=== PATIENT | female | born 1955 | race Caucasian/White ===

== ENCOUNTER 2018-08-07 15:11 | Observation (INO) | payer OTHER ==
[~2018-08-07] VITALS: Ht 170.2 cm; Wt 82.6 kg
[~2018-08-07 15:11] MED LIST: ACETAMINOPHEN325 MG PO; AZITHROMYCIN 2250 MG PO; HYDROCODONE-AP1 EAC6 PO; LEXAPRO 10 MG T10 M1 PO; PHENERGAN 25 MG25 MG PO; PREDNISONE50 MG PO; PROBIOTIC1 EAC1 PO; TORADOL 10 MG T10 MG PO; TYLENOL325 MG PO; VANCOMYCIN125 MG/2.1 PO
[2018-08-07 15:16] VITALS: BP 142/84
[2018-08-07 15:43] LABS: ABSOLUTE BASOPHILS 0.1 thou/uL (0.0-0.2); ABSOLUTE EOSINOPHILS 0.4 thou/uL (0.0-0.7); ABSOLUTE LYMPHOCYTES 4.4 thou/uL (0.8-5.3); ABSOLUTE MONOCYTES 0.7 thou/uL (0.0-1.2); ABSOLUTE NEUTROPHILS 5.7 thou/uL (1.6-8.1); BASOPHILS 1.3 %; EOSINOPHILS 3.5 %; HEMOGLOBIN 12.9 gm/dL (12.0-15.0); LYMPHOCYTES 38.5 %; MCH 32.2 pg (26.0-34.0); MCHC 33.1 g/dL (28.0-37.0); MCV 97.2 fL (80.0-100.0); NUCLEATED RBCS 0 /100WBC; PLATELET COUNT* 234 thou/uL (150-400); POLYS 50.7 %; RBC 4.02 mil/uL (4.20-5.00); RDW-CV 12.7 % (10.5-14.5); WBC 11.3 thou/uL (4.0-11.0)
[2018-08-07 15:49] LABS: ANION GAP 5 mmol/L (7-16); BUN 21 mg/dL (7-18); CALCIUM 8.3 mg/dL (8.5-10.1); CHLORIDE 105 mmol/L (98-107); CO2 29 mmol/L (21-32); GLUCOSE 121 mg/dL (70-99); SODIUM 139 mmol/L (136-145)
[2018-08-07 16:00] LABS: ALBUMIN 3.6 g/dL (3.4-5.0); ALKALINE PHOSPHATASE 47 U/L (46-116); LIPASE 160 U/L (73-393); NT-PRO BRAIN NAT PEPTIDE 61 pg/mL (<300); SGOT 22 U/L (15-37); SGPT 21 U/L (30-65); TOTAL BILIRUBIN 0.3 mg/dL (<0.1-1.0); TOTAL PROTEIN 6.8 g/dL (6.4-8.2); TROPONIN-I LEVEL <0.06 ng/mL (<0.06)
--- NOTE | 2018-08-07 17:31 | EKG ---
[place] [address] ELECTROCARDIOGRAM REPORT Name: PETE MARQUES Room: [place] [address] ADM IN [facility].#: [id number] Admission: 08/07/18 Attend Phys: Nicholas Callaway Discharge: Date of : 57 Report #: [id number] THIS REPORT FOR: //name// [facility] ED Test Date: 2018-08-07 Test Time: 15:18:21 Pat Name: PETE JERALD Department: Room: [facility] Gender: F Network Technical Analyst: TAURUS : 1955 Requested By: Horacio Hanson Order Number: [id number] MD: Sohan Carter Measurements Intervals [place] Rate: 74 P: 38 [place]: 164 QRS: 42 QRSD: 98 T: 58 QT: 387 QTc: 430 Interpretive Statements Sinus rhythm Nonspecific T abnormalities, anterior leads Compared to ECG 08/05/2017 16:58:23 T-wave abnormality now present Intraventricular conduction delay no longer present Electronically Signed On 08-07-2018 17:31:00 CDT by Sohan Carter [email or web address] <ELECTRONICALLY SIGNED> By: Sohan Carter MD, [facility] 08/07/18 1731 1518 1518 Sohan Carter MD, [facility] /EPI
[2018-08-07 18:45] VITALS: BP 163/75
[2018-08-07 18:53] LABS: AMP/METHAMP Negative (Negative); BARBITURATES Negative (Negative); BENZODIAZEPINES Negative (Negative); COCAINE Negative (Negative); METHADONE Negative (Negative); OPIATES Negative (Negative); PCP Negative (Negative); THC POSITIVE (Negative)
[2018-08-07 19:01] VITALS: BP 167/74
[2018-08-07 19:45] VITALS: BP 170/86
[2018-08-07 23:40] VITALS: BP 146/82
[2018-08-08 04:00] VITALS: BP 153/69
[2018-08-08 07:55] VITALS: BP 143/76
[2018-08-08 11:41] VITALS: BP 128/85
[2018-08-08] MEDS ORDERED: PROTONIX 20 MG20 M1 PO (13:59)
[2018-08-08 15:08] VITALS: BP 128/85
[2018-08-08] MEDS ORDERED: ASPIR 8181 MG PO (15:08)
--- NOTE | 2018-08-08 15:22 | EXE ---
[place] [address] STRESS ECHOCARDIOGRAM Name: PETE MARQUES Room: [address] IN [facility]#: [id number] Admission: 08/07/18 Attend Phys: Mateus Webb Discharge: Date of : 57 Date of Service: 08/08/18 1521 Report #: [id number] THIS REPORT FOR: //name// APPROVED REPORT Study performed: 08/08/2018 14:25:44 Exam: Stress Echocardiogram Indication: Chest pain , Dyspnea Patient Location: In-Patient Stress Nurse: Dai Wells RN Room #: [facility] Supervising Physician: Atul Ortega MD Status: routine Ht: 5 ft 7 in HR: 73 bpm BP: 154/103 mmHg Rhythm: NSR Medical History Medications: Nitroglycerin, ASA Allergies: No known drug allergies Cardiac Risk Factors: age, Tobacco History (Current/Recent) Procedure The patient underwent an Exercise Stress Test using the Gene Protocol. Blood pressure, heart rate, and EKG were monitored. An Echocardiogram was performed by studio technician in four stages in quad fashion. At peak stress, four selected images were obtained and placed side by side with resting images for comparison. Stress Test Details Stress Test: Exercise stress testing was performed using a Gene protocol. HR Resting HR: 73 bpm Max Heart Rate (APMHR): 158 bpm Max HR Achieved: 145 bpm Target HR (85% APMHR): 134 bpm % of APMHR: 91 Recovery HR: 83 bpm HR response to stress: Normal HR response to stress BP Resting BP: 154/103 mmHg Max BP: 233/[place] [address] STRESS ECHOCARDIOGRAM Name: PETE MARQUES Room: [address]#: [id number] Admission: 08/07/18 Attend Phys: Mateus Webb Discharge: Date of : 57 Date of Service: 08/08/18 1521 Report #: [id number] Recovery BP: 155/96 mmHg ECG Resting ECG: Sinus Rhythm, normal EKG Stress ECG: Sinus Tachycardia ST Change: None Arrhythmia: None Recovery ECG: Sinus Rhythm, normal EKG Recovery ST Change: None Recovery Arrhythmia: None Clinical Reason for Termination: fatigue Exercise duration: 8 min 58 sec Highest Stage Achieved: Stage 3: 3.4 mph at 14% grade. Exercise capacity: 10.16 METs The patient tolerated standard Gene protocol exercise without significant symptoms. Stress ECG Conclusion The baseline 12-lead EKG shows sinus rhythm without significant ST or T wave abnormality. EKGs obtained during and post exercise stress show sinus rhythm and sinus tachycardia with no significant ST or T wave changes when compared to baseline. There were no stress-induced arrhythmias. Pre-Stress Echo The resting Echocardiogram showed normal left ventricular contractility with an estimated Ejection Fraction of about 55-60%. Post-Stress Echo The stress Echocardiogram showed normal left ventricular contractility with an estimated Ejection Fraction of about >70%. Conclusion Clinical Response: Non-ischemic Exercise Capacity: Average Stress ECG Response: Non-ischemic Stress Echo Images: [place] [address] STRESS ECHOCARDIOGRAM Name: PETE MARQUES Room: [address]#: [id number] Admission: 08/07/18 Attend Phys: Mateus Webb Discharge: Date of : 57 Date of Service: 08/08/18 152 Report #: [id number] Other Information Study Quality: Good <ELECTRONICALLY SIGNED> By: Atul Ortega MD, FACC 08/08/18 152 152 20 Atul Ortega MD, FACC /INF
== END 2018-08-08 15:49 | disposition home or self-care (01) ==
LOC: M.ERS 15:11 → M.2W 16:11 → M.TBA-ER 16:11 → M.2W 16:11
PROVIDERS: Emergency Medicine Emergency Medical Services; ADMIT Internal Medicine
DX: R07.89 Other chest pain (principal); I10 Essential (primary) hypertension; F32.9 Major depressive disorder, single episode, unspecified; M25.512 Pain in left shoulder; K21.9 Gastro-esophageal reflux disease without esophagitis; F12.90 Cannabis use, unspecified, uncomplicated; F19.10 Other psychoactive substance abuse, uncomplicated; F17.210 Nicotine dependence, cigarettes, uncomplicated; Z98.890 Other specified postprocedural states

== ENCOUNTER → 2019-10-07 | Outpatient (CLI) | payer OTHER ==
[~2019-10-07] MED LIST changes: +ASPIR 8181 MG PO; +PROTONIX 20 MG20 M1 PO
== END ==
LOC: M.RAD 13:10
DX: Z12.31 Encounter for screening mammogram for malignant neoplasm of breast (principal)

== ENCOUNTER → 2021-09-15 | Outpatient (CLI) | payer MEDICARE, OTHER | LOC: M.RAD 07-18 16:18 | PROVIDERS: ATTEND Family Medicine | DX: Z12.31 Encounter for screening mammogram for malignant neoplasm of breast (principal); M81.0 Age-related osteoporosis without current pathological fracture; Z78.0 Asymptomatic menopausal state ==